=== PATIENT | female | born 1945 | race Hispanic/Latino ===

== ENCOUNTER 2021-07-01 01:13 | Inpatient (IN) | payer MEDICARE ==
[~2021-07-01] VITALS: Ht 154.9 cm; Wt 57.3 kg
[2021-07-01 03:01] LABS: BASOPHILS % (AUTO) 0.5 % (0.0-5.0); EOSINOPHILS % (AUTO) 3.3 % (0.0-8.0); HEMATOCRIT 24.2 % (36-48); LYMPHOCYTES % (AUTO) 5.8 % (21.0-51.0); MEAN CORPUSCULAR HEMOGLOBIN 29.9 pg (27.0-33.0); MEAN CORPUSCULAR HGB CONC 31.4 g/dL (32.0-36.0); MEAN CORPUSCULAR VOLUME 95.3 fL (79-99); MONOCYTES % (AUTO) 3.7 % (3.0-13.0); NEUTROPHILS % (AUTO) 86.2 % (40.0-77.0); PLATELET COUNT (AUTO) 131 K/uL (130-400); RED BLOOD CELL COUNT(AUTO) 2.54 MIL/uL (4.00-5.50); RED CELL DISTRIBUTION WIDTH 15.8 % (11.0-15.5); WHITE BLOOD COUNT (AUTO) 7.9 K/uL (4.8-10.8)
[2021-07-01 03:09] LABS: CREATININE 2.6 mg/dL (0.5-1.5); POTASSIUM 4.2 mmol/L (3.5-5.1)
[2021-07-01 03:14] LABS: ALBUMIN 2.5 g/dL (3.5-5.0); BILIRUBIN,TOTAL 0.6 mg/dL (0.2-1.0)
[2021-07-01] MEDS ORDERED: AMLO-257 PO (05:46)
[2021-07-01] MEDS ORDERED: MINO2.5T3 PO (05:46)
[2021-07-01] MEDS ORDERED: VITAMIN D PO (05:57)
[2021-07-01] MEDS ORDERED: LOSA50TA64 PO (05:57)
[2021-07-01] MEDS ORDERED: PANT40TA54 PO (05:57)
[2021-07-01] MEDS ORDERED: BUME2TAB5 PO (05:57)
[2021-07-01] MEDS ORDERED: GABA-529 PO (05:57)
[2021-07-01] MEDS ORDERED: CALC667T6 PO (05:57)
[2021-07-01] MEDS ORDERED: TRAM50TA4 PO (06:17)
[2021-07-01] MEDS ORDERED: ACETAMINOPHEN 325 MG TAB PO PRN ×2 (07:00)
[2021-07-01] MEDS ORDERED: ONDANSETRON 4MG INJ IV PRN (07:00)
[2021-07-01] MEDS: HEPARIN 5,000 UNIT VIAL SQ SCH ×3 (08:42→21:22)
[2021-07-01] MEDS: FUROSEMIDE 40MG VIAL IV SCH ×3 (08:42→23:17)
[2021-07-01] MEDS: TRAMADOL HCL 50 MG TABLET PO PRN (10:42)
[2021-07-01] MEDS: CALCIUM AC 667MG CAP PO SCH ×2 (12:24→16:40)
[2021-07-01] MEDS: GABAPENTIN 100 MG CAPSULE PO SCH ×2 (14:00→21:22)
[2021-07-01] MEDS ORDERED: EPOETIN ALFA-EPBX (ESRD) 10,000 UNIT/ML VIAL SQ NR (17:30)
[2021-07-01] MEDS: LOSARTAN 50 MG TABLET PO SCH (21:22)
[2021-07-01 22:10] VITALS: BP 146/64
[2021-07-02] VITALS (21 sets, daily range): BP systolic 128–176; BP diastolic 52–94
[2021-07-02 03:46] LABS: EOSINOPHILS % (AUTO) 7.1 % (0.0-8.0); MEAN CORPUSCULAR HEMOGLOBIN 29.7 pg (27.0-33.0); MEAN CORPUSCULAR HGB CONC 30.1 g/dL (32.0-36.0); MEAN CORPUSCULAR VOLUME 98.6 fL (79-99); MONOCYTES % (AUTO) 9.9 % (3.0-13.0); NEUTROPHILS % (AUTO) 60.7 % (40.0-77.0); PLATELET COUNT (AUTO) 139 K/uL (130-400); RED BLOOD CELL COUNT(AUTO) 2.12 MIL/uL (4.00-5.50); RED CELL DISTRIBUTION WIDTH 15.9 % (11.0-15.5)
[2021-07-02 03:56] LABS: HEMATOCRIT 20.9 % (36-48)
[2021-07-02 04:02] LABS: ALBUMIN 2.1 g/dL (3.5-5.0); BILIRUBIN,TOTAL 0.4 mg/dL (0.2-1.0); CREATININE 3.8 mg/dL (0.5-1.5); MAGNESIUM 2.1 mg/dL (1.80-2.40); PHOSPHORUS 3.4 mg/dL (2.5-4.9); POTASSIUM 4.3 mmol/L (3.5-5.1); TOTAL PROTEIN, SERUM 5.9 g/dL (6.0-8.3)
[2021-07-02 04:58] LABS: B-TYPE NATRIURETIC PEPTIDE > 5000 pg/mL (0-100); HEMOGLOBIN A1C 5.3 % (4.0-6.0)
[2021-07-02] MEDS: TRAMADOL HCL 50 MG TABLET PO PRN ×2 (05:19→20:19)
[2021-07-02 05:23] LABS: % IRON SATURATION 31.8 % (22-44)
[2021-07-02] MEDS: FUROSEMIDE 40MG VIAL IV SCH ×2 (06:33→15:43)
[2021-07-02] MEDS: CALCIUM AC 667MG CAP PO SCH ×3 (08:00→15:43)
[2021-07-02] MEDS: LOSARTAN 50 MG TABLET PO SCH ×2 (09:00→20:19)
[2021-07-02] MEDS: Vitamin B Complex/Vit C/Folic Acid PO SCH (09:00)
[2021-07-02] MEDS: GABAPENTIN 100 MG CAPSULE PO SCH ×3 (09:00→20:18)
[2021-07-02] MEDS: HEPARIN 5,000 UNIT VIAL SQ SCH ×3 (09:00→20:20)
[2021-07-02 10:02] LABS: HEMATOCRIT 23.1 % (36-48)
[2021-07-02] MEDS ORDERED: HEPARIN 5,000 UNIT VIAL SQ PRN (12:00)
[2021-07-02] MEDS ORDERED: ESCI20TA38 PO (13:19)
[2021-07-02] MEDS ORDERED: ATOR10 PO (13:19)
[2021-07-02] MEDS: MUPIROCIN OINTMENT 22 GM TUBE TP SCH (20:21)
[2021-07-02] MEDS ORDERED: EPOETIN ALFA-EPBX (ESRD) 10,000 UNIT/ML VIAL SQ SCH (21:00)
[2021-07-03 00:05] VITALS: BP 148/61
[2021-07-03 03:46] LABS: HEMATOCRIT 22.6 % (36-48); MEAN CORPUSCULAR HEMOGLOBIN 29.9 pg (27.0-33.0); MEAN CORPUSCULAR HGB CONC 31.9 g/dL (32.0-36.0); MEAN CORPUSCULAR VOLUME 93.8 fL (79-99); PLATELET COUNT (AUTO) 111 K/uL (130-400); RED BLOOD CELL COUNT(AUTO) 2.41 MIL/uL (4.00-5.50); RED CELL DISTRIBUTION WIDTH 15.7 % (11.0-15.5); WHITE BLOOD COUNT (AUTO) 4.6 K/uL (4.8-10.8)
[2021-07-03 03:48] VITALS: BP 138/58
[2021-07-03 04:08] LABS: B-TYPE NATRIURETIC PEPTIDE 3730 pg/mL (0-100)
[2021-07-03 04:20] LABS: BASOPHILS % (MANUAL) 2 % (0-2); EOSINOPHILS % (MANUAL) 7 % (1-6); LYMPHOCYTES % (MANUAL) 14 % (22-44); MONOCYTES % (MANUAL) 7 % (2-9); SEGMENTED NEUTROPHILS % 70 % (40-70)
[2021-07-03 04:21] LABS: MAN.DIFF COMMENT-IMPRESSION MANUAL DIFFERENTIAL; PLATELET MORPHOLOGY COMMENT SLIGHTLY DECREASED
[2021-07-03 04:30] LABS: ALBUMIN 2.1 g/dL (3.5-5.0); BILIRUBIN,TOTAL 0.4 mg/dL (0.2-1.0); CREATININE 3.9 mg/dL (0.5-1.5); POTASSIUM 4.2 mmol/L (3.5-5.1); TOTAL PROTEIN, SERUM 5.9 g/dL (6.0-8.3)
[2021-07-03 08:00] VITALS: BP 126/55
[2021-07-03] MEDS: CALCIUM AC 667MG CAP PO SCH ×3 (08:00→16:28)
[2021-07-03] MEDS: FUROSEMIDE 40MG VIAL IV SCH ×3 (11:06→21:17)
[2021-07-03] MEDS: Vitamin B Complex/Vit C/Folic Acid PO SCH (11:06)
[2021-07-03] MEDS: TRAMADOL HCL 50 MG TABLET PO PRN ×2 (11:07→16:28)
[2021-07-03] MEDS: GABAPENTIN 100 MG CAPSULE PO SCH ×3 (11:07→21:17)
[2021-07-03] MEDS: LOSARTAN 50 MG TABLET PO SCH ×2 (11:07→21:17)
[2021-07-03] MEDS: MUPIROCIN OINTMENT 22 GM TUBE TP SCH ×2 (11:08→21:18)
[2021-07-03 12:35] VITALS: BP 132/52
[2021-07-03 16:25] VITALS: BP 149/62
[2021-07-03 20:27] VITALS: BP 146/66
[2021-07-03] MEDS ORDERED: ATORVASTATIN 20 MG TABLET PO SCH (21:00)
[2021-07-04] VITALS (15 sets, daily range): BP systolic 130–159; BP diastolic 50–79
[2021-07-04] MEDS: FUROSEMIDE 40MG VIAL IV SCH ×2 (03:17→13:29)
[2021-07-04 04:16] LABS: HEMATOCRIT 23.3 % (36-48); MEAN CORPUSCULAR HEMOGLOBIN 30.1 pg (27.0-33.0); MEAN CORPUSCULAR HGB CONC 31.8 g/dL (32.0-36.0); MEAN CORPUSCULAR VOLUME 94.7 fL (79-99); PLATELET COUNT (AUTO) 149 K/uL (130-400); RED BLOOD CELL COUNT(AUTO) 2.46 MIL/uL (4.00-5.50); RED CELL DISTRIBUTION WIDTH 15.4 % (11.0-15.5); WHITE BLOOD COUNT (AUTO) 5.9 K/uL (4.8-10.8)
[2021-07-04 05:28] LABS: PHOSPHORUS 4.2 mg/dL (2.5-4.9); POTASSIUM 4.4 mmol/L (3.5-5.1)
[2021-07-04 06:40] LABS: BASOPHILS % (MANUAL) 1 % (0-2); EOSINOPHILS % (MANUAL) 6 % (1-6); LYMPHOCYTES % (MANUAL) 6 % (22-44); MAN.DIFF COMMENT-IMPRESSION MANUAL DIFFERENTIAL; MONOCYTES % (MANUAL) 8 % (2-9); SEGMENTED NEUTROPHILS % 79 % (40-70)
[2021-07-04 06:41] LABS: PLATELET MORPHOLOGY COMMENT SLIGHTLY DECREASED
[2021-07-04] MEDS ORDERED: AMLODIPINE 5 MG TAB PO SCH (09:00)
[2021-07-04] MEDS ORDERED: ASPIRIN 81MG CHEW TAB PO SCH (09:00)
[2021-07-04] MEDS ORDERED: TORS20TA4 PO (09:09)
[2021-07-04] MEDS ORDERED: ASPI-1005 PO (09:09)
[2021-07-04] MEDS ORDERED: MUPI22OI2 TP (09:09)
[2021-07-04] MEDS: GABAPENTIN 100 MG CAPSULE PO SCH ×2 (09:17→13:29)
[2021-07-04] MEDS: Vitamin B Complex/Vit C/Folic Acid PO SCH (09:17)
[2021-07-04] MEDS: CALCIUM AC 667MG CAP PO SCH ×2 (09:17→13:29)
[2021-07-04] MEDS: MUPIROCIN OINTMENT 22 GM TUBE TP SCH (09:21)
[2021-07-04] MEDS: LOSARTAN 50 MG TABLET PO SCH (13:30)
[2021-07-04] MEDS: TRAMADOL HCL 50 MG TABLET PO PRN (13:38)
== END 2021-07-04 15:30 | disposition home or self-care (01) | DRG 189 ==
LOC: EDH 01:13 → OBSVTOIN 06:18 → EDHIP 06:18 → 4CH 22:08
PROVIDERS: ADMIT Hospitalist; ATTEND Hospitalist
PROC: 30233N1 Transfusion of Nonautologous Red Blood Cells into Peripheral Vein, Percutaneous Approach (ICD-10-PCS; principal; 2021-07-02)
PROC: 5A1D70Z Performance of Urinary Filtration, Intermittent, Less than 6 Hours Per Day (ICD-10-PCS; 2021-07-02)
PROC: 5A1D70Z Performance of Urinary Filtration, Intermittent, Less than 6 Hours Per Day (ICD-10-PCS; 2021-07-04)
DX: J96.01 Acute respiratory failure with hypoxia (principal); N18.6 End stage renal disease; I13.2 Hypertensive heart and chronic kidney disease with heart failure and with stage 5 chronic kidney disease, or end stage renal disease; E87.70 Fluid overload, unspecified; E78.5 Hyperlipidemia, unspecified; D63.1 Anemia in chronic kidney disease; E11.65 Type 2 diabetes mellitus with hyperglycemia; E11.51 Type 2 diabetes mellitus with diabetic peripheral angiopathy without gangrene; Z20.822 Contact with and (suspected) exposure to COVID-19; I50.9 Heart failure, unspecified; E11.621 Type 2 diabetes mellitus with foot ulcer; L97.511 Non-pressure chronic ulcer of other part of right foot limited to breakdown of skin; F32.A Depression, unspecified; F41.9 Anxiety disorder, unspecified; E11.22 Type 2 diabetes mellitus with diabetic chronic kidney disease; Z99.2 Dependence on renal dialysis; Z88.5 Allergy status to narcotic agent; Z88.8 Allergy status to other drugs, medicaments and biological substances; I16.0 Hypertensive urgency
CPT/HCPCS: 36415; 36430; 71045; 80048; 80053; 80061; 82550; 82607; 82728; 82746; 83036; 83540; 83550; 83735; 83874; 83880; 84100; 84484; 85014; 85018; 85025; 85651; 86704; 86706; 86850; 86900; 86901; 86923; 87340; 87635; 90935; 93005; 93306; 93925; 94760; 97039; G0378; J1644; J1940; P9016

== ENCOUNTER → 2021-07-09 | Outpatient (CLI) | payer MEDICARE ==
[~2021-07-09] MED LIST: AMLO-257 PO; ASPI-1005 PO; ATOR10 PO; CALC667T6 PO; ESCI20TA38 PO; GABA-529 PO; LIDOCAINE HCL 4% LTA SOL 4 ML VIAL TP ONE; LOSA50TA64 PO; MUPI22OI2 TP; PANT40TA54 PO; TORS20TA4 PO; TRAM50TA4 PO; VITAMIN D PO
== END | disposition home or self-care (01) ==
LOC: WHH 08:10
PROVIDERS: ATTEND Podiatrist Foot & Ankle Surgery
DX: I70.235 Atherosclerosis of native arteries of right leg with ulceration of other part of foot (principal); L97.512 Non-pressure chronic ulcer of other part of right foot with fat layer exposed; I70.243 Atherosclerosis of native arteries of left leg with ulceration of ankle; L97.321 Non-pressure chronic ulcer of left ankle limited to breakdown of skin; I12.0 Hypertensive chronic kidney disease with stage 5 chronic kidney disease or end stage renal disease; N18.6 End stage renal disease; E78.5 Hyperlipidemia, unspecified; F32.9 Major depressive disorder, single episode, unspecified; Z90.49 Acquired absence of other specified parts of digestive tract; Z95.5 Presence of coronary angioplasty implant and graft; Z79.899 Other long term (current) drug therapy; Z79.82 Long term (current) use of aspirin; Z87.891 Personal history of nicotine dependence
CPT/HCPCS: G0463; L3260

== ENCOUNTER → 2021-07-30 | Outpatient (CLI) | payer MEDICARE ==
[~2021-07-30] MED LIST changes: -LIDOCAINE HCL 4% LTA SOL 4 ML VIAL TP ONE
== END | disposition home or self-care (01) ==
LOC: WHH 08:00
PROVIDERS: ATTEND Podiatrist Foot & Ankle Surgery
DX: B35.1 Tinea unguium (principal); L60.2 Onychogryphosis; I70.235 Atherosclerosis of native arteries of right leg with ulceration of other part of foot; E11.621 Type 2 diabetes mellitus with foot ulcer; L97.512 Non-pressure chronic ulcer of other part of right foot with fat layer exposed; E11.622 Type 2 diabetes mellitus with other skin ulcer; I70.243 Atherosclerosis of native arteries of left leg with ulceration of ankle; L97.321 Non-pressure chronic ulcer of left ankle limited to breakdown of skin; E11.22 Type 2 diabetes mellitus with diabetic chronic kidney disease; I13.2 Hypertensive heart and chronic kidney disease with heart failure and with stage 5 chronic kidney disease, or end stage renal disease; I50.9 Heart failure, unspecified; N18.6 End stage renal disease; E11.51 Type 2 diabetes mellitus with diabetic peripheral angiopathy without gangrene; E78.5 Hyperlipidemia, unspecified; F41.9 Anxiety disorder, unspecified; F32.9 Major depressive disorder, single episode, unspecified; Z90.49 Acquired absence of other specified parts of digestive tract; Z95.5 Presence of coronary angioplasty implant and graft; Z79.899 Other long term (current) drug therapy; Z79.82 Long term (current) use of aspirin; Z87.891 Personal history of nicotine dependence; Z99.2 Dependence on renal dialysis; Z88.8 Allergy status to other drugs, medicaments and biological substances
CPT/HCPCS: 11721

== ENCOUNTER → 2022-08-11 | Outpatient (CLI) | payer OTHER | END | disposition home or self-care (01) | LOC: SHCH 11:14 | PROVIDERS: ATTEND Student in an Organized Health Care Education/Training Program | DX: I07.1 Rheumatic tricuspid insufficiency (principal); I11.9 Hypertensive heart disease without heart failure; E78.5 Hyperlipidemia, unspecified | CPT/HCPCS: 93306 ==

== ENCOUNTER → 2022-11-03 | Outpatient (CLI) | payer OTHER | END | disposition home or self-care (01) | LOC: SHCH 12:42 | PROVIDERS: ATTEND Student in an Organized Health Care Education/Training Program | DX: I08.8 Other rheumatic multiple valve diseases (principal); I13.11 Hypertensive heart and chronic kidney disease without heart failure, with stage 5 chronic kidney disease, or end stage renal disease; N18.6 End stage renal disease; I42.5 Other restrictive cardiomyopathy; I31.39 Other pericardial effusion (noninflammatory); I73.9 Peripheral vascular disease, unspecified; E78.2 Mixed hyperlipidemia; Z79.899 Other long term (current) drug therapy | CPT/HCPCS: 93306 ==